=== PATIENT | female | born 1945 | race Caucasian/White ===

== ENCOUNTER → 2017-07-02 | Outpatient (CLI) | payer MEDICARE ==
--- NOTE | 2017-07-02 15:42 | REPMRS ---
Patient History The patient states she had a clinical breast exam in Patient is postmenopausal and had first child at age 34. Family history of ovarian cancer in mother at age 72 and colorectal cancer in paternal uncle at age 78. Took hormonal contraceptives for 5 years. Digital Woman Screen Mammo: July 02, 2017 - Exam #: [id number] Bilateral CC and MLO view(s) were taken. Technologist: Beth Andujar, Technologist Prior study comparison: May 21, 2016, bilateral digital mammo screening bilat, performed at [facility]. March 22, 2015, bilateral digital mammo screening bilat, performed at [facility]. FINDINGS: There are scattered fibroglandular densities. There has been no change in the appearance of the mammogram from the prior studies. There is a mild amount of residual fibroglandular tissue which is fairly symmetric. There is no interval development of dominant mass, architectural distortion, or clustered microcalcification suggestive of malignancy. ASSESSMENT: BI-RADS/ACR category 1 mammogram. Negative. Recommendation Routine screening mammogram in 1 year (for women over age 40). This mammogram was interpreted with the aid of an FDA-approved computer-aided dectection system. Electronically Signed By: Anders Marcos MD 07/02/17 [id number]
--- NOTE | 2017-07-06 11:11 | DEXA ---
AP SPINE L1 - L4 1.058 -1.1 0.6 LT FEMUR TOTAL 0.845 -1.3 0.2 RT FEMUR TOTAL 0.838 -1.3 0.2 TOTAL BODY TOTAL OTHER COMMENTS: There is low bone density of the spine and hips. The decreased density of the spine does represent a significant change. The decreased density of the left hip does represent a significant change. The decreased density of the right hip does represent a significant change. The density of the spine has decreased 1.9% since the initial exam on 11/2006. The spine density has decreased 3.0% since the most recent exam on 06/2009. The density of the left hip has decreased 2.0% since the initial exam on 11/2006. The density of the left hip has decreased 6.1% since the most recent exam on 2008. The density of the right hip has decreased 5.7% since the initial exam on 2006. The density of the right hip has decreased 5.5% since the most recent exam in . FOLLOW-UP: Recommendation for the next bone density exam: 2 years. JACKIE
== END ==
LOC: M WHC 14:04
PROVIDERS: ATTEND Internal Medicine
DX: Z12.31 Encounter for screening mammogram for malignant neoplasm of breast (principal); M85.80 Other specified disorders of bone density and structure, unspecified site; Z92.0 Personal history of contraception; Z78.0 Asymptomatic menopausal state
CPT/HCPCS: 77080; G0202

== ENCOUNTER → 2017-08-03 | Outpatient (CLI) | payer MEDICARE ==
--- NOTE | 2017-08-03 11:42 | REP ---
Maxillofacial CT study without contrast: History: Anosmia. No comparison study. Technique: Helical scanning is acquired. Axial 3 mm slices are reformatted along with coronal multiplanar reformation images. CT findings: There is moderate mucosal thickening circumferentially involving the left maxillary sinus. The left maxillary sinus mc are slightly thickened suggesting chronic changes. The left infundibulum is developmentally narrowed. The ostium and infundibulum are occluded in the ostiomeatal complexes on the left by mucosal thickening. The right OMC is patent. Bony nasal septum is in the midline. Nasal turbinate soft tissues are unremarkable and symmetric. No nasal polyp is seen. Ethmoid aeration is normal. The right maxillary sinus is clear. Frontal sinuses and sphenoid sinuses are clear. Mastoid aeration is normal and symmetric. Nasopharynx is unremarkable. There is some spray artifact from dental amalgam. No bony destructive change is seen. The nate henry and olfactory grooves are unremarkable. Impression: Left maxillary sinus disease likely chronic. Occluded left ostiomeatal complex. No other abnormality. Signed by Reji Banda MD 08/03/2017 04:10 P
== END ==
LOC: M RAD 10:17
PROVIDERS: ATTEND Otolaryngology
DX: R43.0 Anosmia (principal); J34.89 Other specified disorders of nose and nasal sinuses

== ENCOUNTER → 2017-12-08 | Outpatient (REF) | payer MEDICARE ==
[2017-12-08 18:52] LABS: C REACTIVE PROTEIN QUANTITATIV < 0.30 MG/DL (0.00-0.30)
== END ==
LOC: M LAB REF 17:45
DX: M79.1 Myalgia (principal)
CPT/HCPCS: 86140

== ENCOUNTER → 2017-12-10 | Outpatient (REF) | payer MEDICARE ==
[2017-12-10 14:00] LABS: VITAMIN B12 LEVEL 399 PG/ML
[2017-12-10 14:01] LABS: FOLATE 14.3 NG/ML; RHEUMATOID FACTOR QUANT < 10.0 IU/ML (<15.0); TOTAL PROTEIN 7.8 GM/DL (6.4-8.2)
[2017-12-10 14:25] LABS: ERYTHROCYTE SEDIMENTATION RATE 14 mm/hr (0-30)
[2017-12-10 14:56] LABS: ESTIMATED AVERAGE GLUCOSE 111 MG/DL (60-110); HEMOGLOBIN A1c 5.5 %
[2017-12-14 10:59] LABS: ALBUMIN 4.36 GM/DL (3.29-5.55); ALBUMIN % 55.9 % (55.8-66.1); ALPHA-1-GLOBULIN % 3.9 % (2.9-4.9); ALPHA-2-GLOBULINS 0.84 GM/DL (0.42-0.99); ALPHA-2-GLOBULINS % 10.8 % (7.1-11.8); BETA-1-GLOBULINS 0.52 GM/DL (0.28-0.60); BETA-1-GLOBULINS % 6.7 % (4.7-7.2); BETA-2-GLOBULINS 0.42 GM/DL (0.19-0.55); BETA-2-GLOBULINS % 5.4 % (3.2-6.5); GAMMA GLOBULIN % 17.3 % (11.1-18.8); GAMMA GLOBULINS 1.35 GM/DL (0.65-1.58)
[2017-12-15 00:06] LABS: ANCA-ATYPICAL <1:20 titer (Neg:<1:20); ANTI DOUBLE STRAND-DNA AB <1 IU/mL (0-9); ANTINUCLEAR ANTIBODIES DIRECT Negative (Negative); CERULOPLASMIN 24.1 mg/dL (19.0-39.0); COPPER PLASMA 107 ug/dL (72-166); CYTOPLASMIC NEUTROP AB ANCA-C <1:20 titer (Neg:<1:20); LEAD BLOOD ADULT 1 ug/dL (0-19); MERCURY LEVEL 1.8 ug/L (0.0-14.9); PERINUCLEAR AB ANCA-P <1:20 titer (Neg:<1:20); SJOGREN'S ANTI SS-A <0.2 AI (0.0-0.9); SJOGREN'S ANTI SS-B <0.2 AI (0.0-0.9); VITAMIN B6,PYRIDOXAL PHOSPHATE 5.3 ug/L (2.0-32.8); VITAMIN E(ALPHA TOCOPHEROL) 11.5 mg/L (9.0-29.0); VITAMIN E(GAMMA TOCOPHEROL) 1.3 mg/L (0.5-4.9)
[2017-12-15 09:07] LABS: DRVV SCREEN 35.2 SEC
[2017-12-15 09:08] LABS: PTT LUPUS TYPE ANTICOAG SCREEN 0.8 (0-1.2)
== END ==
LOC: M LABNEURO 09:54
DX: G62.9 Polyneuropathy, unspecified (principal); Z13.88 Encounter for screening for disorder due to exposure to contaminants
CPT/HCPCS: 82525

== ENCOUNTER 2017-12-24 12:35 | Observation (INO) | payer MEDICARE ==
[2017-12-24] MEDS: LABETALOL HCL 100 MG/20 ML VIAL IV ×2 (13:50→19:00)
[2017-12-24 13:59] LABS: BASO # 0.1 10^3/uL (0.0-0.2); BASO % 1.1 % (0.0-1.0); EOS # 0.1 10^3/uL (0.0-0.50); EOS % 0.9 % (0.0-3.0); HEMATOCRIT 36.7 % (36.0-47.0); HEMOGLOBIN 12.1 g/dl (12.0-15.5); IMMATURE GRANULOCYTE % 0.3 % (0-3.0); LYMPH # 1.1 10^3/uL (1.5-4.5); LYMPH % 16.7 % (24.0-44.0); MEAN CORPUSCULAR HEMOGLOBIN 30.4 pg (27.0-33.0); MEAN CORPUSCULAR VOLUME 92.2 fl (80.0-96.0); MONO # 0.3 10^3/uL (0.0-0.8); MONO % 5.2 % (0.0-5.0); NEUTROPHILS # 4.9 10^3/uL (1.8-7.7); NEUTROPHILS % 75.8 % (36.0-66.0); PLATELET COUNT, AUTOMATED 188 10^3/uL (150-450); RED BLOOD COUNT 3.98 10^6/uL (4.00-5.40); RED CELL DISTRIBUTION WIDTH 13.2 % (11.5-14.5); WHITE BLOOD COUNT 6.5 10^3/uL (4.0-10.0)
[2017-12-24 14:10] LABS: INR 0.93; PROTHROMBIN TIME 12.5 SECONDS (12.4-14.5)
[2017-12-24 14:11] LABS: PARTIAL THROMBOPLASTIN TIME 31.1 SECONDS (26.8-37.9)
[2017-12-24 14:26] LABS: ALBUMIN 3.8 GM/DL (3.2-5.2); ALBUMIN/GLOBULIN RATIO 1.06 (1.00-1.93); ALKALINE PHOSPHATASE 77 U/L (45-117); ALT/SGPT 21 U/L (12-78); ANION GAP 7 MEQ/L (8-16); AST/SGOT 27 U/L (7-37); BILIRUBIN,DIRECT 0.2 MG/DL (0.0-0.2); BILIRUBIN,TOTAL 0.7 MG/DL (0.2-1.0); BLOOD UREA NITROGEN 13 MG/DL (7-18); CALCIUM LEVEL 8.9 MG/DL (8.8-10.2); CARBON DIOXIDE LEVEL 25 MEQ/L (21-32); CHLORIDE LEVEL 109 MEQ/L (98-107); CK-MB VALUE MASS < 1.0 NG/ML (<3.6); CPK CREATINE PHOSPHOKINASE 105 U/L (26-192); GLOMERULAR FILTRATION RATE > 60.0 (>39); GLUCOSE, FASTING 99 MG/DL (70-100); MB/CK RELATIVE INDEX 0.95 (< OR =4); POTASSIUM SERUM 4.4 MEQ/L (3.5-5.1); SODIUM LEVEL 141 MEQ/L (136-145); TOTAL PROTEIN 7.4 GM/DL (6.4-8.2); TROPONIN I 0.02 NG/ML (< 0.10)
[2017-12-24] MEDS: METOCLOPRAMIDE INJ 10MG/2ML VIAL (J2765) IV (15:30)
[2017-12-24] MEDS: amLODIPine 5 MG TAB PO (16:37)
[2017-12-24 16:42] LABS: C REACTIVE PROTEIN QUANTITATIV < 0.30 MG/DL (0.00-0.30); NT-PRO BNP 350 PG/ML (<125)
[2017-12-24 17:01] LABS: ERYTHROCYTE SEDIMENTATION RATE 14 mm/hr (0-30)
[2017-12-24] MEDS ORDERED: ACETAMINOPHEN 500 MG TAB PO (17:15)
[2017-12-24] MEDS ORDERED: ENTER DRUG NAME HERE (PATIENT'S OWN MED) OU (17:15)
[2017-12-24] MEDS ORDERED: ONDANSETRON 4MG/2ML VIAL (J2405) IV (17:15)
[2017-12-24] MEDS: CYCLOBENZAPRINE 5MG TABLET PO (17:17)
[2017-12-24 18:00] LABS: THYROID STIMULATING HORMONE 0.674 uIU/ML (0.358-3.740)
[2017-12-24] MEDS ORDERED: KETOROLAC 30 MG/ML VIAL (J1885) IV (18:00)
[2017-12-24 18:19] LABS: APPEARANCE, URINE CLEAR (CLEAR); BACTERIA, URINE AUTO 1+ (NEGATIVE); BILIRUBIN, URINE AUTO NEGATIVE (NEGATIVE); BLOOD, URINE BLOOD NEGATIVE (NEGATIVE); COLOR, URINE STRAW (YELLOW); GLUCOSE, URINE (UA) AUTO NEGATIVE (NEGATIVE); KETONE, URINE AUTO 1+ mg/dL (NEGATIVE); LEUKOCYTE ESTERASE, URINE AUTO 2+ (NEGATIVE); MUCUS, URINE SMALL (NEGATIVE); NITRITE, URINE AUTO NEGATIVE (NEGATIVE); PROTEIN, URINE AUTO NEGATIVE (NEGATIVE); RBC, URINE AUTO 3 /HPF (0-3); SPECIFIC GRAVITY URINE AUTO 1.006 (1.002-1.035); SQUAMOUS EPITHELIAL CELL UR AU 0 /HPF (0-6); UROBILINOGEN, URINE AUTO 0.2 mg/dL (0.0-2.0); WBC, URINE AUTO 17 /HPF (0-3)
[2017-12-24 20:14] LABS: CPK CREATINE PHOSPHOKINASE 76 U/L (26-192); TROPONIN I 0.08 NG/ML (< 0.10)
[2017-12-24 20:15] LABS: CK-MB VALUE MASS 1.2 NG/ML (<3.6); MB/CK RELATIVE INDEX 1.57 (< OR =4)
[2017-12-24] MEDS: LISINOPRIL 20 MG TAB PO (20:55)
[2017-12-24] MEDS ORDERED: LISINOPRIL 10 MG TAB PO (21:00)
[2017-12-24] MEDS ORDERED: PILL CRUSHER/CUTTER 1 EACH XX (21:30)
[2017-12-24] MEDS: ROSUVASTATIN 10 MG TAB (CRESTOR) PO (21:40)
[2017-12-24] MEDS: rOPINIRole 0.25 MG TAB(REQUIP) PO (21:40)
[2017-12-24] MEDS: POLYVINYL ALCOHOL OPHTH SOLN 15 ML(LIQUITEARS) OU (21:41)
[2017-12-24] MEDS: DOCUSATE SODIUM 100 MG CAP PO (21:41)
[2017-12-24] MEDS: ASPIRIN 81 MG ENTERIC TAB PO (21:41)
[2017-12-24] MEDS: FLUTICASONE PROP 0.05% NASAL SPRAY 16 GM (FLONASE) (21:42)
[2017-12-24] MEDS ORDERED: TEARS NATURALE FREE OPHTH DROP VIAL OU (22:00)
[2017-12-25] MEDS: LABETALOL HCL 100 MG/20 ML VIAL IV ×2 (00:32→06:28)
[2017-12-25 04:54] LABS: BASO % 0.8 % (0.0-1.0); EOS # 0.1 10^3/uL (0.0-0.50); EOS % 2.2 % (0.0-3.0); HEMOGLOBIN 11.5 g/dl (12.0-15.5); IMMATURE GRANULOCYTE % 0.2 % (0-3.0); LYMPH # 1.6 10^3/uL (1.5-4.5); LYMPH % 31.6 % (24.0-44.0); MEAN CORPUSCULAR HEMOGLOBIN 30.6 pg (27.0-33.0); MEAN CORPUSCULAR HGB CONC 32.9 g/dl (32.0-36.5); MEAN CORPUSCULAR VOLUME 93.1 fl (80.0-96.0); MONO # 0.5 10^3/uL (0.0-0.8); MONO % 9.3 % (0.0-5.0); NEUTROPHILS # 2.8 10^3/uL (1.8-7.7); NEUTROPHILS % 55.9 % (36.0-66.0); PLATELET COUNT, AUTOMATED 187 10^3/uL (150-450); RED BLOOD COUNT 3.76 10^6/uL (4.00-5.40); RED CELL DISTRIBUTION WIDTH 13.3 % (11.5-14.5); WHITE BLOOD COUNT 4.9 10^3/uL (4.0-10.0)
[2017-12-25] MEDS: POLYVINYL ALCOHOL OPHTH SOLN 15 ML(LIQUITEARS) OU ×3 (05:10→21:01)
[2017-12-25 05:23] LABS: ANION GAP 5 MEQ/L (8-16); BLOOD UREA NITROGEN 11 MG/DL (7-18); CALCIUM LEVEL 8.5 MG/DL (8.8-10.2); CARBON DIOXIDE LEVEL 26 MEQ/L (21-32); CHLORIDE LEVEL 113 MEQ/L (98-107); CPK CREATINE PHOSPHOKINASE 64 U/L (26-192); CREATININE FOR GFR 0.79 MG/DL (0.55-1.30); GLOMERULAR FILTRATION RATE > 60.0 (>39); GLUCOSE, FASTING 92 MG/DL (70-100); SODIUM LEVEL 144 MEQ/L (136-145); TROPONIN I 0.02 NG/ML (< 0.10)
[2017-12-25 05:24] LABS: CK-MB VALUE MASS < 1.0 NG/ML (<3.6); MB/CK RELATIVE INDEX 1.56 (< OR =4)
[2017-12-25] MEDS: CALCIUM/VITAMIN D 500 MG TAB PO (08:54)
[2017-12-25] MEDS: rOPINIRole 0.25 MG TAB(REQUIP) PO ×3 (08:54→20:17)
[2017-12-25] MEDS: LISINOPRIL 20 MG TAB PO (08:54)
[2017-12-25] MEDS: DOCUSATE SODIUM 100 MG CAP PO ×2 (08:54→20:19)
[2017-12-25] MEDS: FLUTICASONE PROP 0.05% NASAL SPRAY 16 GM (FLONASE) ×2 (08:55→21:01)
[2017-12-25] MEDS: ACETAMINOPHEN TAB 650MG DOSE (2X325MG) PO (08:55)
[2017-12-25] MEDS: ENOXAPARIN 40 MG/0.4 ML SYRINGE (J1650) SC (08:55)
[2017-12-25] MEDS: PRAZOSIN 1 MG CAP PO ×2 (10:08→20:20)
[2017-12-25] MEDS ORDERED: POLYVINYL ALCOHOL OPHTH SOLN 15 ML(LIQUITEARS) OU (10:30)
[2017-12-25] MEDS: ASPIRIN 81 MG ENTERIC TAB PO (20:17)
[2017-12-25] MEDS: ROSUVASTATIN 10 MG TAB (CRESTOR) PO (20:19)
[2017-12-25] MEDS: CHLORTHALIDONE 25 MG TAB PO (20:19)
[2017-12-25] MEDS: CYCLOBENZAPRINE 5MG TABLET PO (21:01)
[2017-12-26 04:20] LABS: BASO # 0.1 10^3/uL (0.0-0.2); BASO % 1.2 % (0.0-1.0); EOS # 0.2 10^3/uL (0.0-0.50); EOS % 3.1 % (0.0-3.0); HEMATOCRIT 36.4 % (36.0-47.0); HEMOGLOBIN 11.7 g/dl (12.0-15.5); IMMATURE GRANULOCYTE % 0.4 % (0-3.0); LYMPH # 1.7 10^3/uL (1.5-4.5); LYMPH % 32.7 % (24.0-44.0); MEAN CORPUSCULAR HGB CONC 32.1 g/dl (32.0-36.5); MEAN CORPUSCULAR VOLUME 93.3 fl (80.0-96.0); MONO # 0.5 10^3/uL (0.0-0.8); MONO % 9.4 % (0.0-5.0); NEUTROPHILS # 2.7 10^3/uL (1.8-7.7); NEUTROPHILS % 53.2 % (36.0-66.0); PLATELET COUNT, AUTOMATED 190 10^3/uL (150-450); RED CELL DISTRIBUTION WIDTH 13.5 % (11.5-14.5); WHITE BLOOD COUNT 5.1 10^3/uL (4.0-10.0)
[2017-12-26 04:23] LABS: ANION GAP 7 MEQ/L (8-16); BLOOD UREA NITROGEN 15 MG/DL (7-18); CALCIUM LEVEL 8.4 MG/DL (8.8-10.2); CARBON DIOXIDE LEVEL 26 MEQ/L (21-32); CHLORIDE LEVEL 110 MEQ/L (98-107); CREATININE FOR GFR 0.98 MG/DL (0.55-1.30); GLOMERULAR FILTRATION RATE 59.6 (>39); GLUCOSE, FASTING 93 MG/DL (70-100); POTASSIUM SERUM 3.8 MEQ/L (3.5-5.1); SODIUM LEVEL 143 MEQ/L (136-145)
[2017-12-26] MEDS: POLYVINYL ALCOHOL OPHTH SOLN 15 ML(LIQUITEARS) OU ×3 (06:17→21:28)
[2017-12-26] MEDS: LISINOPRIL 20 MG TAB PO ×2 (07:44→08:30)
[2017-12-26] MEDS: PRAZOSIN 1 MG CAP PO ×2 (08:29→21:00)
[2017-12-26] MEDS: rOPINIRole 0.25 MG TAB(REQUIP) PO ×3 (08:29→21:28)
[2017-12-26] MEDS: CALCIUM/VITAMIN D 500 MG TAB PO (08:29)
[2017-12-26] MEDS: DOCUSATE SODIUM 100 MG CAP PO ×2 (08:30→21:00)
[2017-12-26] MEDS: ENOXAPARIN 40 MG/0.4 ML SYRINGE (J1650) SC (08:32)
[2017-12-26] MEDS: FLUTICASONE PROP 0.05% NASAL SPRAY 16 GM (FLONASE) ×2 (08:32→21:28)
[2017-12-26] MEDS: CYCLOBENZAPRINE 5MG TABLET PO (08:36)
[2017-12-26] MEDS: ASPIRIN 81 MG ENTERIC TAB PO (21:28)
[2017-12-26] MEDS: ROSUVASTATIN 10 MG TAB (CRESTOR) PO (21:29)
[2017-12-27] MEDS: POLYVINYL ALCOHOL OPHTH SOLN 15 ML(LIQUITEARS) OU (05:40)
[2017-12-27 05:49] LABS: BASO % 0.8 % (0.0-1.0); EOS # 0.2 10^3/uL (0.0-0.50); EOS % 3.7 % (0.0-3.0); HEMATOCRIT 37.5 % (36.0-47.0); HEMOGLOBIN 12.3 g/dl (12.0-15.5); IMMATURE GRANULOCYTE % 0.4 % (0-3.0); LYMPH # 1.7 10^3/uL (1.5-4.5); LYMPH % 32.6 % (24.0-44.0); MEAN CORPUSCULAR HEMOGLOBIN 30.7 pg (27.0-33.0); MEAN CORPUSCULAR HGB CONC 32.8 g/dl (32.0-36.5); MEAN CORPUSCULAR VOLUME 93.5 fl (80.0-96.0); MONO # 0.4 10^3/uL (0.0-0.8); MONO % 8.6 % (0.0-5.0); NEUTROPHILS # 2.7 10^3/uL (1.8-7.7); NEUTROPHILS % 53.9 % (36.0-66.0); PLATELET COUNT, AUTOMATED 203 10^3/uL (150-450); RED BLOOD COUNT 4.01 10^6/uL (4.00-5.40); RED CELL DISTRIBUTION WIDTH 13.4 % (11.5-14.5); WHITE BLOOD COUNT 5.1 10^3/uL (4.0-10.0)
[2017-12-27 06:04] LABS: ANION GAP 4 MEQ/L (8-16); BLOOD UREA NITROGEN 11 MG/DL (7-18); CALCIUM LEVEL 8.4 MG/DL (8.8-10.2); CARBON DIOXIDE LEVEL 28 MEQ/L (21-32); CHLORIDE LEVEL 110 MEQ/L (98-107); CREATININE FOR GFR 0.86 MG/DL (0.55-1.30); GLOMERULAR FILTRATION RATE > 60.0 (>39); GLUCOSE, FASTING 104 MG/DL (70-100); SODIUM LEVEL 142 MEQ/L (136-145)
[2017-12-27] MEDS: PRAZOSIN 1 MG CAP PO ×2 (09:00→10:51)
[2017-12-27] MEDS: CALCIUM/VITAMIN D 500 MG TAB PO (09:52)
[2017-12-27] MEDS: rOPINIRole 0.25 MG TAB(REQUIP) PO (09:52)
[2017-12-27] MEDS: DOCUSATE SODIUM 100 MG CAP PO (09:53)
[2017-12-27] MEDS: FLUTICASONE PROP 0.05% NASAL SPRAY 16 GM (FLONASE) (09:53)
[2017-12-27] MEDS: ENOXAPARIN 40 MG/0.4 ML SYRINGE (J1650) SC (09:53)
[2017-12-27] MEDS: LISINOPRIL 20 MG TAB PO (10:51)
[2017-12-31 00:08] LABS: METANEPHRINE PLASMA 36 pg/mL (0-62); NORMETANEPHRINE PLASMA 88 pg/mL (0-145)
== END 2017-12-27 11:00 | disposition home or self-care (01) ==
LOC: M MSPAV 12-26 21:58 → M ED 12:35 → M ED INP 12:36 → M PCU 20:44
DX: I16.0 Hypertensive urgency (principal); R51 Headache; E78.5 Hyperlipidemia, unspecified; J32.9 Chronic sinusitis, unspecified; G25.81 Restless legs syndrome; H04.123 Dry eye syndrome of bilateral lacrimal glands; Z91.81 History of falling; G89.29 Other chronic pain; M85.80 Other specified disorders of bone density and structure, unspecified site; Z79.899 Other long term (current) drug therapy; Z79.82 Long term (current) use of aspirin; Z88.2 Allergy status to sulfonamides; J30.81 Allergic rhinitis due to animal (cat) (dog) hair and dander; Z87.891 Personal history of nicotine dependence
CPT/HCPCS: J2765

== ENCOUNTER → 2018-07-05 | Outpatient (CLI) | payer MEDICARE | LOC: M RAD 09:29 | DX: Z12.31 Encounter for screening mammogram for malignant neoplasm of breast (principal); Z92.0 Personal history of contraception | CPT/HCPCS: 77067 ==

== ENCOUNTER → 2018-12-13 | Outpatient (CLI) | payer MEDICARE ==
[~2018-12-13] MED LIST: ASPI81TA21 PO; CALCTAB68 PO; COQ-400C PO; CRES5TAB PO; FLON27.5; LISI-538 PO; LISI10TA4 PO; MELO15TA28 PO; ROPI0.5T PO; SYST1SOL2 OP; SYSTSOL11 OU; TYLE500T78 PO
[2018-12-13 09:55] LABS: HEMATOCRIT 42.9 % (36.0-47.0); HEMOGLOBIN 13.6 g/dl (12.0-15.5); MEAN CORPUSCULAR HEMOGLOBIN 29.6 pg (27.0-33.0); MEAN CORPUSCULAR HGB CONC 31.7 g/dl (32.0-36.5); MEAN CORPUSCULAR VOLUME 93.3 fl (80.0-96.0); PLATELET COUNT, AUTOMATED 205 10^3/uL (150-450); WHITE BLOOD COUNT 7.3 10^3/uL (4.0-10.0)
[2018-12-13 10:08] LABS: INR 1.02; PROTHROMBIN TIME 13.5 SECONDS (12.1-14.4)
[2018-12-13 10:22] LABS: ALT/SGPT 26 U/L (12-78); BILIRUBIN,TOTAL 0.6 MG/DL (0.2-1.0); BLOOD UREA NITROGEN 16 MG/DL (7-18); CALCIUM LEVEL 9.4 MG/DL (8.8-10.2); CARBON DIOXIDE LEVEL 30 MEQ/L (21-32); CHLORIDE LEVEL 104 MEQ/L (98-107); GLOMERULAR FILTRATION RATE > 60.0 (>39); GLUCOSE, FASTING 91 MG/DL (70-100); POTASSIUM SERUM 3.9 MEQ/L (3.5-5.1); SODIUM LEVEL 140 MEQ/L (136-145); TOTAL PROTEIN 7.4 GM/DL (6.4-8.2)
[2018-12-13 10:24] LABS: ERYTHROCYTE SEDIMENTATION RATE 11 mm/hr (0-30)
--- NOTE | 2018-12-13 19:39 | REP ---
CHEST, TWO VIEWS: COMPARISON: 12/24/2017 There is no evidence of acute infiltrate. No pleural effusion is seen. The heart is normal in size. The mediastinal silhouette is unremarkable. The visualized osseous structures are intact. There is calcification of the thoracic aorta. IMPRESSION: No acute pulmonary disease. Electronically Signed by Anders Marcos MD 12/15/2018 10:16 A
--- NOTE | 2018-12-14 06:26 | ECGEPIP ---
Stationary ECG Study [facility] Test Date: 2018-12-13 Pat Name: VÍCTOR MAYER Department: Room: - Gender: F Observer [employer]: : 1945 Requested By: Gi John @ [facility] Order Number: [id number] Reading MD: Cecil Niño Measurements Intervals [place] Rate: 75 P: 40 NJ: 174 QRS: 28 QRSD: 90 T: 35 QT: 383 QTc: 429 Interpretive Statements Normal sinus rhythm Normal EKG Improvement in anterolateral repolarization pattern versus prior tracing of 12/24/2017 Electronically Signed On 12-14-2018 6:26:49 EDT by Cecil Niño
== END ==
LOC: M LAB 08:07
PROVIDERS: ATTEND Orthopaedic Surgery
DX: M17.12 Unilateral primary osteoarthritis, left knee (principal); Z01.818 Encounter for other preprocedural examination

== ENCOUNTER → 2018-12-23 | Outpatient (CLI) | payer MEDICARE ==
[~2018-12-23] MED LIST changes: +ACET-897 PO; +CHLO25TA PO; +CITRTAB13 PO; +POTA10TA16 PO; +SYST1SOL OU
== END ==
LOC: M PT 10:24
PROVIDERS: ATTEND Orthopaedic Surgery
DX: Z01.818 Encounter for other preprocedural examination (principal)

== ENCOUNTER 2019-01-13 12:10 | Inpatient (IN) | payer MEDICARE ==
--- NOTE | 2018-12-28 10:44 | CR ---
DATE OF CONSULTATION: 12/20/2018 Preoperative consultation on Lydia Montes De Oca for Dr. Mcginnis for surgery 01/13/2019. Dear Dr. Mcginnis: Thank you for asking me to see Ms. Lydia Montes De Oca in consultation prior to her left total knee arthroplasty (TKA). Ms. Montes De Oca is, as you know, a 73-year-old female with a past medical history of hypertension, hyperlipidemia, progressive osteoarthritis (OA), who presents for preoperative optimization on 12/20/2018. Ms. Montes De Oca had uncontrolled hypertension this year. She has changed to new health habits and has dropped her weight over 30 pounds by eating healthy and exercising. Her antihypertensive regimen has been weaned down such that she is just taking chlorthalidone at this time. She denies any chest pain or palpitations. Patient feels she has bronchitis, persistent coughing, fatigue, malaise over the last week. Her had it prior to this. Patient had restless leg syndrome. She was on dopaminergic medications, but these have been discontinued with little to no worsening of symptoms. Patient does have allergies. She uses saline and Flonase as needed. Patient has a nickel allergy, which was evaluated because the hardware used for the knee replacement normally has nickel. Indeed, patient was found to have allergies to nickel, gold, and methylchloroisothiazolinone. She is avoid these, and she will be having a titanium knee replacement to avoid the nickel. Patient does have the knee pain that limits her activities. She is eager to get the knee replaced and get back to full activity. Patient otherwise denies any fevers. She has had the chills, the cough, the shortness of breath. It has only been minimally productive. PATIENT'S PAST MEDICAL HISTORY: 1. Depression. 2. Hypertension. Status post hypertensive urgency with admission to [facility] 2018 with cardiology consultation finding no secondary cause of the elevated blood pressure and echocardiogram showing only impairment of left ventricle (LV) diastolic dysfunction. 3. Hyperlipidemia. 4. Obesity. 5. Migraines. 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 7. History of atypical Pap smears, endometriosis, . 8. Dyspnea on exertion. Previous normal spirometry 2011, normal chest x-ray 2009, and normal stress testing. 9. Atypical squamous cells of undetermined significance (ASCUS) 1996 with repeat normal Pap smears. 10. Precancerous skin lesions. Follows with Dr. Walden. 11. OA/degenerative joint disease (DJD) bilateral knees. Follows with orthopedics. 12. Restless leg syndrome. MEDICATIONS: She uses: - Biofreeze as needed - calcium daily - chlorthalidone 25 mg a half daily - Coenzyme Q10 daily - Crestor 5 mg daily - Flonase as needed - Klor-Con one daily - saline spray as needed - Systane eye drops - Tylenol Arthritis as needed PATIENT'S DRUG ALLERGIES: Are to SULFA, NICKEL, SIMVASTATIN, PRAVASTATIN, CAT DANDER, and METALS, including GOLD SODIUM THIOSULFATE, NICKEL SULFATE, METHYLCHLOROISOTHIAZOLINONE. SOCIAL HISTORY: Happily , two adult children. Retired former smoker. Occasional alcohol. FAMILY HISTORY: Positive for hypertension father. Mother of ovarian cancer at 74. Two brothers have had hypertension; one had a heart attack and heart failure in his 80s. PHYSICAL EXAMINATION: Overweight female in no acute distress. Her weight is 158 with a body mass index (BMI) of 28, oxygen saturation is 97% at rest. Blood pressure 114/60 with a heart rate of 98. In general, no acute distress. HEENT Exam: Head is normocephalic. Neck is supple. Pupils equal, reactive to light. Extraocular movements intact. Conjunctivae not injected. Sclerae anicteric. Vision grossly normal. Tympanic membranes normal. Tongue is midline. Posterior pharynx without inflammation. Neck is supple. No thyromegaly, jugular venous distention (JVD), carotid bruits. Respiratory: Coarse with frequent cough. Cardiovascular: Regular rate and rhythm. No murmur, rub, gallop. Abdomen: Soft, nontender. No hepatosplenomegaly. Gynecologic: Deferred. Breast Exam: Deferred. Extremities: No cyanosis, clubbing, or edema. Dermatologic: She has resolving erythema from skin testing to metals upper back. Neurologic: Alert and oriented. Cranial nerves II-XII intact. LABORATORY DATA: 12/20/2018: Normal CBC, med profile, lipid. 12/13/2018: Normal CBC, ESR, med profile, PT/PTT, liver panel. EKG [facility] ([facility]) 12/13/2018: Normal sinus rhythm, normal R wave progression. No atrial or ventricular hypertrophy. No pathologic T waves. Normal QT, QTc, RI intervals. Improved anterolateral repolarization compared to an EKG from 12/24/2017. Chest x-ray 12/13/2018: No acute cardiopulmonary disease. IMPRESSION: Ms. Lydia Montes De Oca, 73-year-old female, with cardiovascular risk factors positive for hypertension, hyperlipidemia, age, has no signs or symptoms indicative of cardiovascular ischemia and is felt to be at low risk and optimized for proposed surgical intervention. Risks can be further minimized by the followin. Hypertension. Hold chlorthalidone morning of surgery. Commended for efforts with diet, exercise, weight loss. 2. Hyperlipidemia. Continue with her diet, exercise. She will take her Crestor morning of surgery. 3. Osteoarthritis/degenerative joint disease. She is using only Tylenol, and I have approved this perioperatively as well as topicals. 4. Obesity. Commended at length for 30-pound weight loss. 5. Hyperglycemia, resolved. 6. Restless leg syndrome. Off ropinirole with no significant relapse of symptoms. 7. Allergic rhinitis. She will use her Flonase. Increase saline to four times a day. 8. Bronchitis, persistent greater than a week. She will use honey-based lozenges and doxycycline 100 mg by mouth twice a day for 10 days. I will see her back on recheck 12/28/2018 and do an addendum for final approval to proceed with surgical intervention. 9. Metal allergies, including to nickel, gold, and others. Should certainly be avoided in this patient. Thank you very much for this consultation. Please call with any questions or concerns.
--- NOTE | 2019-01-03 15:18 | CR ---
DATE OF CONSULTATION: 12/28/2018 Dr. Maria Isabel Moore dictating an addendum to original preoperative consultation 12/20/[address] Alvaro Mcginnis for knee replacement surgery 01/13/2019. The patient was originally seen for preoperative consultation 12/20/2018 at which time she was battling bronchitis. She was treated with doxycycline and reports significant improvement in her pulmonary symptoms, including improved energy, fatigue, malaise, cough, and congestion. The patient has one more day of antibiotic therapy. The patient otherwise reports she is doing well. Denying fevers or chills, chest pain, or shortness of breath. She has no new signs or symptoms of concern. She did go to joint camp yesterday. The patient is in no acute distress. Her vital signs are: Blood pressure 146/66, heart rate 88, weight is 160, with a body mass index (BMI) of 28. HEENT examination: Benign. Tympanic membranes slightly dull. Respiratory: Clear to auscultation. Cardiovascular: Regular rate and rhythm. Abdomen: Soft, nontender. Extremities: No edema. ASSESSMENT AND PLAN: Bronchitis. Significant improvement after a 10-day course of doxycycline. The patient is felt to be optimized and safe to proceed with surgical intervention, which is tentatively scheduled for 01/13/2019. She is instructed to take Flonase and saline until surgery and the a.m. of surgery. Otherwise, preoperative recommendations as per the previous preoperative consultation, including a.m. of surgery to take her Crestor with sip of water. Thank you very much for this consultation. Please call with questions or concerns.
--- NOTE | 2019-01-06 17:48 | HPE ---
DATE OF SCHEDULED ADMISSION: 01/13/2019 ATTENDING PHYSICIAN: Dr. Gi Mcginnis CHIEF COMPLAINT: Left knee pain and stiffness. HISTORY: This is a pleasant 73-year-old female patient with persistent and worsening pain in her left knee. She has failed to improve with conservative management to include injections in her knee. She has pain with weightbearing activities and activities of daily living, as well as it affects her sleep and activities of daily living. She has elected for surgery for her left knee. She has been consented by Dr. Mcginnis for a left total knee arthroplasty. X- rays notable for end-stage degenerative changes of her left knee. Medical optimization Dr. Moore. ALLERGIES: Include PRAVASTATIN, SIMVASTATIN, NICKEL and SULFA MEDICATIONS. CURRENT MEDICATIONS: - meloxicam 15 mg one tablet once per day; she will discontinue that 5 days prior surgery. - Crestor 5 mg one tablet once per day - Coenzyme Q-10 200 mg one tablet once per day - lisinopril/hydrochlorothiazide 10/12.5 one tablet once per day. - aspirin 81 mg; she will stop that 5 days prior to surgery. - She also takes [id number] glucosamine chondroitin and Citracal. MEDICAL CONDITIONS: Include hypertension, elevated cholesterol, allergic rhinitis, end-stage osteoarthritis of the left knee. FAMILY HISTORY: Elevated cholesterol, hypertension, cancer, heart disease, thyroid disease. SOCIAL HISTORY: She does not smoke. She occasionally uses alcohol. She is retired. PAST SURGICAL HISTORY: She has had a growth removed from her left wrist and her right foot. REVIEW OF SYSTEMS: Denies fever or chills. Denies chest pain, shortness of breath or cough. Denies difficulty breathing. Denies abdominal pain. Notes persistent pain in her left knee with weightbearing activities and activities of daily living. Denies nausea or vomiting. Denies recent upper respiratory infection (URI) or urinary tract infection (UTI) symptoms. EXAM: Today reveals alert female patient. She ambulates with the use of a cane. She favors her left side. Exam of left knee reveals the skin to be intact. No erythema, edema or ecchymosis. Tenderness both medially and laterally. The calf is soft, nontender to palpation. She can sensate light touch, well-perfused left lower extremity. Neck is supple without adenopathy or jugular venous distention (JVD). Lungs are clear to auscultation. No rales or wheeze. Heart: Regular rate and rhythm. Abdomen: Bowel sounds are present. IMPRESSION: Symptomatic osteoarthritis left knee. PLAN: Consented for a left total knee arthroplasty. It should be advised that she has a nickel allergy. She will need to be set up for a Nieves and [employer] system due to the nickel allergy. JACKIE
[~2019-01-13] VITALS: Ht 160 cm; Wt 70.3 kg
[~2019-01-13 12:10] MED LIST changes: +ACETAMINOPHEN 500 MG TAB PO ONE; +LIDOCAINE 1% MDV 20ML VIAL SQ PRN; +LR 1,000 ML IV SCH
[2019-01-13] MEDS ORDERED: ceFAZolin 2 GM/D5W 50 ML IV BAG (J0690 PER 500MG) As Ordered ONE (12:43)
[2019-01-13] MEDS ORDERED: ceFAZolin 1GM INJ (J0690 PER 500MG) As Ordered ONE (13:39)
[2019-01-13] MEDS ORDERED: BUPIVACAINE LIPOSOME/PF 1.3% 20ML VIAL (13.3MG/ML)(EXPAREL)(C9290 PER1MG) As Ordered ONE (13:40)
[2019-01-13] MEDS ORDERED: BUPIVACAINE HCL 0.25% 10 ML VIAL As Ordered ONE (13:40)
[2019-01-13] MEDS ORDERED: TRANEXAMIC ACID 100 MG/ML 10ML VIAL As Ordered ONE (13:41)
[2019-01-13] MEDS ORDERED: EPINEPHrine INJ 1 MG/ML 1ML AMP As Ordered ONE (13:42)
[2019-01-13] MEDS ORDERED: MIDAZOLAM INJ 2 MG/2 ML VIAL (J2250) As Ordered ONE ×2 (14:34→16:52)
[2019-01-13] MEDS ORDERED: fentaNYL 100 MCG/2 ML INJECTION (J3010) As Ordered ONE ×2 (14:35→16:52)
[2019-01-13] MEDS: fentaNYL 100 MCG/2 ML INJECTION (J3010) IV SCH ×2 (15:06→15:26)
[2019-01-13] MEDS: MIDAZOLAM INJ 2 MG/2 ML VIAL (J2250) IV SCH ×4 (15:06→15:26)
[2019-01-13] MEDS ORDERED: dexameTHASONE 10 MG/1 ML VIAL PRES.FREE (J1100) ONE (15:27)
[2019-01-13] MEDS ORDERED: ROPIvacaine 0.5% 30 ML INJECTION (J2795 PER 1MG) ONE (15:27)
[2019-01-13] MEDS ORDERED: EPINEPHrine INJ 1 MG/ML 1ML AMP ONE (15:27)
[2019-01-13] MEDS ORDERED: LIDOCAINE 2% INJ 100 MG/5 ML SDV (FOR ANES.) As Ordered ONE (16:52)
[2019-01-13] MEDS ORDERED: PROPOFOL 500 MG/50 ML VIAL As Ordered ONE (16:52)
[2019-01-13] MEDS ORDERED: BUPIVACAINE/DEXTROSE 0.75% 2 ML AMP As Ordered ONE (16:52)
[2019-01-13] MEDS ORDERED: ONDANSETRON 4MG/2ML VIAL (J2405) As Ordered ONE (16:52)
[2019-01-13] MEDS ORDERED: PHENYLephrine HCL 500 MCG/5 ML (100MCG/ML) SYRINGE (J2370) As Ordered ONE (16:52)
--- NOTE | 2019-01-13 18:53 | REP ---
Clinical: Status post knee replacement. Technique AP and cross-table lateral views. Findings: The patient is status post left knee replacement. Overlying postsurgical changes appreciated. Impression: Status post left knee replacement. Electronically Signed by Caleb Ackerman MD 01/13/2019 06:45 P
[2019-01-13] MEDS ORDERED: ONDANSETRON 4MG/2ML VIAL (J2405) IV PRN (19:00)
[2019-01-13] MEDS ORDERED: fentaNYL 100 MCG/2 ML INJECTION (J3010) IV PRN (19:00)
[2019-01-13] MEDS ORDERED: ACETAMINOPHEN TAB 650MG DOSE (2X325MG) PO PRN (19:00)
[2019-01-13] MEDS ORDERED: FLEET ENEMA PR PRN (19:00)
[2019-01-13] MEDS ORDERED: MEPERIDINE INJ 25 MG/ML VIAL (J2175) IV PRN (19:00)
[2019-01-13] MEDS ORDERED: PERCOCET 5MG/325MG TAB PO PRN (19:00)
[2019-01-13] MEDS ORDERED: METOCLOPRAMIDE INJ 10MG/2ML VIAL (J2765) IV PRN (19:00)
[2019-01-13] MEDS ORDERED: LR 1,000 ML IV SCH ×2 (19:00)
--- NOTE | 2019-01-13 19:32 | CR.PDOC ---
General Date of Consultation: January 13, 2019 Referring Provider: TERRI BRUCE MD Consultation REASON FOR CONSULTATION/CHIEF COMPLAINT: Management of medical comorbidities. HISTORY OF PRESENT ILLNESS: . 73-year-old female with past medical history of hypertension, dyslipidemia, and osteoporosis was admitted to the orthopedic service for elective left knee replacement. At this time, the patient states that she is feeling relatively well and denies any acute complaints of fevers, chills, chest pain, palpitations, abdominal pain, or any nausea/vomiting/diarrhea. The hospitalist service was consulted for management of the patient's medical comorbidities. ALLERGIES: Please see below. HOME MEDICATIONS: Please see below. PAST MEDICAL HISTORY: As noted in HPI. PAST SURGICAL HISTORY: Growth removal from left wrist and right foot SOCIAL HISTORY: Occasional alcohol use. Denies tobacco or illicit drug use. REVIEW OF SYSTEMS: 10 point review of systems negative unless otherwise specified in HPI. PHYSICAL EXAMINATION: VITAL SIGNS: Please see below. GENERAL APPEARANCE: . Awake, alert, in no acute distress HEENT: . Normocephalic, atraumatic RESPIRATORY: . Clear to auscultation bilaterally CARDIOVASCULAR: . Normal rate, normal S1, S2 ABDOMEN: . Soft, nontender, nondistended EXTREMITIES: . Left knee wrapped in surgical dressing. Range of motion limited due to recent surgical intervention. Extremity neurovascularly intact distally LABORATORY DATA: Please see below. ASSESSMENT/PLAN: s/p Left Knee Replacement AC, Pain, post-operative surgical mgmt as per Ortho Hypertension We will restart the patient's chlorthalidone in the a.m. if labs are stable Dyslipidemia Continue statin DVT prophylaxis On Xarelto as per Ortho Vital Signs/I&O Vital Signs Date Time Temp Pulse Resp B/P (MAP) Pulse Ox O2 Delivery O2 Flow Rate FiO2 01/13/19 19:10 97.6 76 18 158/73 (101) 99 01/13/19 15:31 3 Allergies Coded Allergies: Cat Dander (Verified Allergy, Severe, 12/30/18) Isothiazolinones (Verified Allergy, Unknown, CL + ME + ISOTHIAZOLINONE, 12/30/18) Sulfa (Sulfonamide Antibiotics) (Verified Allergy, Unknown, rash, 12/30/18) adhesive (Verified Allergy, Unknown, rash, 12/30/18) nickel (Verified Allergy, Unknown, 12/30/18) pravastatin (Verified Allergy, Unknown, muscle pain, 12/31/18) simvastatin (Verified Allergy, Unknown, muscle pain, 12/31/18) sodium thiosulfate (Verified Allergy, Unknown, GOLD SODIUM THIOSULFATE, 12/30/18) Home Medications Scheduled Calcium Citrate/Vitamin D3 (Citracal + D Maximum Caplet) 1 Each Tablet, 1 TAB PO QAM, (Reported) Chlorthalidone (Chlorthalidone) 25 Mg Tablet, 25 MG PO DAILY, (Reported) Fluticasone Furoate (Flonase Sensimist) 27.5 Mcg/[place] Naomy, 1 SPRAY NA QHS, (Reported) Potassium Chloride (Potassium Chloride) 10 Meq Tab.er.prt, 10 MEQ PO DAILY, (Reported) Propylene Glycol/Peg 400 (Systane 0.3-0.4% Eye Drops) 15 Ml Drops, 1 DROP OU DAILY, (Reported) Rosuvastatin Calcium (Crestor) 5 Mg Tab, 5 MG PO QHS, (Reported) Ubidecarenone (Co Q-10) 400 Mg Cap, 400 MG PO QHS, (Reported) Scheduled PRN Acetaminophen (Tylenol Extra Strength) 500 Mg Tablet, 1,000 MG PO Q6HP PRN for PAIN, (Reported) TERRI BRUCE MD January 13, 2019 19:32
[2019-01-13 19:50] VITALS: BP 150/75
[2019-01-13 20:20] VITALS: BP 145/70
[2019-01-13] MEDS: HYDROmorphone HCL 2 MG/ML 1ML VIAL (J1170) IV PRN (20:55)
[2019-01-13] MEDS: FLUTICASONE PROP 0.05% NASAL SPRAY 16 GM (FLONASE) NARES SCH (21:00)
[2019-01-13] MEDS ORDERED: PILL CUTTER 1 EACH XX PRN (23:45)
[2019-01-14 00:20] VITALS: BP 156/73
[2019-01-14] MEDS: HYDROmorphone HCL 2 MG/ML 1ML VIAL (J1170) IV PRN (00:56)
[2019-01-14 06:00] VITALS: BP 144/69
[2019-01-14] MEDS ORDERED: PERCOCET 5MG/325MG TAB PO PRN (06:15)
[2019-01-14 06:28] LABS: HEMATOCRIT 35.8 % (36.0-47.0); HEMOGLOBIN 11.7 g/dl (12.0-15.5); MEAN CORPUSCULAR HEMOGLOBIN 30.5 pg (27.0-33.0); MEAN CORPUSCULAR HGB CONC 32.7 g/dl (32.0-36.5); MEAN CORPUSCULAR VOLUME 93.2 fl (80.0-96.0); PLATELET COUNT, AUTOMATED 173 10^3/uL (150-450); RED BLOOD COUNT 3.84 10^6/uL (4.00-5.40); WHITE BLOOD COUNT 8.8 10^3/uL (4.0-10.0)
[2019-01-14 06:36] LABS: INR 0.98; PROTHROMBIN TIME 13.1 SECONDS (12.1-14.4)
[2019-01-14] MEDS: PERCOCET 5MG/325MG TAB PO PRN ×2 (06:41→10:51)
[2019-01-14] MEDS ORDERED: XARE10TA PO (06:44)
[2019-01-14] MEDS ORDERED: PERC5TAB12 PO (06:44)
[2019-01-14 06:50] LABS: BLOOD UREA NITROGEN 9 MG/DL (7-18); CARBON DIOXIDE LEVEL 28 MEQ/L (21-32); CHLORIDE LEVEL 105 MEQ/L (98-107); CREATININE FOR GFR 0.71 MG/DL (0.55-1.30); GLOMERULAR FILTRATION RATE > 60.0 (>39); GLUCOSE, FASTING 119 MG/DL (70-100); POTASSIUM SERUM 3.4 MEQ/L (3.5-5.1); SODIUM LEVEL 139 MEQ/L (136-145)
[2019-01-14 06:51] LABS: ALBUMIN 3.2 GM/DL (3.2-5.2); ALT/SGPT 21 U/L (12-78); BILIRUBIN,TOTAL 0.5 MG/DL (0.2-1.0); CALCIUM LEVEL 8.9 MG/DL (8.8-10.2); MAGNESIUM LEVEL 1.6 MG/DL (1.8-2.4); TOTAL PROTEIN 6.5 GM/DL (6.4-8.2)
[2019-01-14] MEDS ORDERED: MAGNESIUM OXIDE 400 MG TAB (MAG-OX) PO ONE (08:00)
[2019-01-14] MEDS ORDERED: POTASSIUM CHLORIDE 10 MEQ SR TABLET PO ONE (08:00)
[2019-01-14] MEDS ORDERED: CHLORTHALIDONE 25 MG TAB PO SCH (09:00)
[2019-01-14] MEDS: FLUTICASONE PROP 0.05% NASAL SPRAY 16 GM (FLONASE) NARES SCH (09:00)
[2019-01-14] MEDS ORDERED: ROSUVASTATIN 10 MG TAB (CRESTOR) PO SCH (09:00)
[2019-01-14] MEDS ORDERED: POLYVINYL ALCOHOL OPHTH SOLN 15 ML(LIQUITEARS) OU SCH (09:00)
[2019-01-14] MEDS ORDERED: MIRALAX *UNIT DOSE* 17GM PACKET PO SCH (09:00)
--- NOTE | 2019-01-14 09:35 | RO ---
DATE OF PROCEDURE: 01/13/2019 PREOPERATIVE DIAGNOSIS: Left knee degenerative arthritis. POSTOPERATIVE DIAGNOSIS: Left knee degenerative arthritis. PROCEDURE: Left total knee arthroplasty using a size 4 cruciate retaining femoral component with a size 2 tibial tray and a 10 mm fixed bearing polyethylene insert with a size 26 polyethylene button. All the components were cemented. Prosthesis was made by [employer]. It was a JOURNEY prosthesis made with titanium because of her nickel allergy. SURGEON: Gi Mcginnis MD SECURITY INFRASTRUCTURE ENGINEER: MJ Santos ANESTHESIA: Spinal with left femoral nerve block. COMPLICATIONS: None. ESTIMATED BLOOD LOSS: Less than 20 mL. SPECIMENS: Joint surface PROCEDURE: Antibiotics were given intravenously preoperatively and a successful left femoral nerve block then spinal anesthetic was induced. Tourniquet was placed on the left upper thigh and not inflated. The left lower extremity was carefully prepped and draped in the usual sterile fashion, and elevated. After an appropriate time out, the tourniquet was inflated to 250 mmHg for 85 minutes. A longitudinal incision was then made for a medial parapatellar approach. Bovie cautery was used to coagulate the crossing vessels. Medial parapatellar arthrotomy performed. Subperiosteal dissection around the proximal, medial and lateral tibial plateaus performed. Then the patella was everted and the knee flexed, and the anterior cruciate ligament (ACL) debrided. Drill placed down the center of the femoral canal followed by intramedullary manoj and distal femoral cutting jig set at 9.5 mm resection level at 5 degrees valgus for a left knee. Then the distal femoral osteotomy was performed. The AP sizing jig was placed then, and then the stylus told us this was going to be a size 4 femoral component. The drill holes were placed with 3 degrees of external rotation dialed in, and then the 4-in-1 block applied and secured to the distal femur, and then the anterior/posterior chamfer cuts were performed, taking great care to protect the surrounding soft tissues. We then exposed the proximal tibia and used the extramedullary alignment jig to estimate being parallel to the mechanical axis of the tibia, referencing off the medial tibial condyle, and we set it at 2 mm initially. It was pinned in position, then the extramedullary manoj confirmed we appeared to be parallel to the mechanical axis with the appropriate amount of slope. Proximal tibial osteotomy thus performed. We then placed a lamina solar lab technician laterally and performed a completion medial meniscectomy and debridement of a posteromedial osteophyte. Then placed the lamina the solar lab technician medially and performed a completion lateral meniscectomy and debridement of the posterolateral osteophytes. We then used the spacer block, it was a bit snug, quite a bit so with the 9 mm spacer block. However, reasonable symmetry between the medial and lateral compartments was noted in both flexion and extension, but I felt it best to take 2 mm more off the tibia because it was tight both in flexion and in extension, thus we reapplied the block and 2 mm more of proximal tibia were removed and irrigated, and then we trialed once again with the spacer block. The 9 fit nicely and the 10 actually fit nicely as well, and I thought that was probably going to be the right size. She had good stability to varus valgus stress testing both in flexion and extension. A little bit increased varus laxity compared to valgus laxity, which is typical. I then removed all the trial components at this point, exposed the proximal tibia, sized for a #2 tray and then the blocked was pinned in position, drill placed, followed by the chamfer cut. Then we removed the trial tibial tray and then applied the trial femoral component and then we applied the small jig that slid into the anterior portion of the femoral component and used the sliding osteotome to make a small notch cut. Then the trial femoral component was applied, and then the trial polyethylene was applied and we brought the knee into extension and everted the patella and performed a patellar osteotomy, sized for 26 button, drill holes were drilled. Trial placed and the patellofemoral tracking was anatomic. We flexed and extended the knee. She seemed to have good range of motion, good stability, good patellar tracking. We drilled lug holes for the femur at this point and then we removed all the trial components and placed Exparel in the subperiosteal tissues around the distal femur and the proximal tibia and then I prepared the bony surfaces for cementing while my farm assistant, Mr. Reynaldo Horvath mixed the cement on the back table. He was also critical to the success of this operation by helping with appropriate soft tissue retraction, helped to flex and extend the knee, helped to mix the cement, close the wound prepare the patient, amongst many other tasks to allow me to performed the operation smoothly, efficiently and safely. Once the stu surfaces were copiously irrigated and dried, we cemented the tibial tray, removed excess cement. We then placed the polyethylene, then cemented the femoral component, removed excess cement, brought the knee out into extension, cemented the patellar button, held it with a clamp, and then removed excess cement and held the knee in extension with a clamp on it until the cement hardened, and as we were awaiting this we copiously pulsatile lavage irrigated out the knee joint copiously again, and then applied tranexamic acid, and then began closing the apex of the arthrotomy with two #1 PDS sutures, and the medial parapatellar area was closed with a #1 PDS suture, and then a double armed STRATAFIX was used to close the capsule. The tourniquet was then released. We irrigated again between layers, closed the deep subdermal tissues with interrupted #2-0 PDS sutures. The skin was closed with bibiana and covered by an Optifoam and a dry sterile bulky dressing. She was then transferred to the recovery room in stable condition. There were no intraoperative complications.
--- NOTE | 2019-01-14 11:39 | IPNPDOC ---
Subjective Date Seen The patient was seen on 01/14/19. Subjective Chief Complaint/HPI Patient seen and examined at the bedside. Denies any acute complaints at this time. No overnight events noted. Objective Physical Examination General Exam: Positive: Alert, Cooperative, No Acute Distress ENT Exam: Positive: Atraumatic, Mucous membr. moist/pink Neck Exam: Negative: JVD Chest Exam: Positive: Clear to auscultation, Normal air movement Heart Exam: Positive: Rate Normal, Normal S1, Normal S2 Abdomen Exam: Positive: Soft; Negative: Tenderness Extremity Exam: Positive: Other (Left Knee wrapped in surgical dressing. Extremity neurovascularly intact distally.) Psych Exam: Positive: Oriented x 3 Assessment /Plan Plan/VTE VTE Prophylaxis Ordered?: Yes Plan s/p Left Knee Replacement AC, Pain, post-operative surgical mgmt as per Ortho Hypomagnesemia, Hypokalemia Replaced Hypertension Chlorthalidone restarted Dyslipidemia Continue statin DVT prophylaxis On Xarelto as per Ortho VS, I&O, 24H, Fishbone Vital Signs/I&O Vital Signs Date Time Temp Pulse Resp B/P (MAP) Pulse Ox O2 Delivery O2 Flow Rate FiO2 01/14/19 10:51 18 01/14/19 06:00 97.7 75 144/69 (94) 95 01/13/19 15:31 3 I&O- Last 24 Hours up to 6 AM 01/14/19 06:00 Intake Total 2340 ml Output Total 400 ml Balance 1940 ml Laboratory Data 24H LABS Laboratory Tests 2 01/14/19 05:59: Nucleated Red Blood Cells % (auto) 0.0, Prothrombin Time 13.1, Prothromb Time International Ratio 0.98, Anion Gap 6L, Glomerular Filtration Rate > 60.0, Blood Urea Nitrogen 9, Creatinine 0.71, Sodium Level 139, Potassium Level 3.4L, Chloride Level 105, Carbon Dioxide Level 28, Calcium Level 8.9, Aspartate Amino Transf (AST/SGOT) 24, Alanine Aminotransferase (ALT/SGPT) 21, Alkaline Phosphatase 64, Total Bilirubin 0.5, Total Protein 6.5, Albumin 3.2, Magnesium Level 1.6L, Albumin/Globulin Ratio 0.97L CBC/BMP Laboratory Tests 01/14/19 05:59 Red Blood Count 3.84 L, Mean Corpuscular Volume 93.2, Mean Corpuscular Hemogl obin 30.5, Mean Corpuscular Hemoglobin Concent 32.7, Red Cell Distribution Width 12.8, Calcium Level 8.9, Aspartate Amino Transf (AST/SGOT) 24, Alanine Aminotransferase (ALT/SGPT) 21, Alkaline Phosphatase 64, Total Bilirubin 0.5, Total Protein 6.5, Albumin 3.2 TERRI BRUCE MD January 14, 2019 11:39
[2019-01-14] MEDS ORDERED: RIVAROXABAN 10 MG TAB (XARELTO) PO SCH (18:00)
[2019-01-15] MEDS ORDERED: XARE10TA PO (00:01)
[2019-01-15] MEDS ORDERED: OXYC1TAB23 PO (00:01)
== END 2019-01-14 13:00 | disposition home or self-care (01) | DRG 470 ==
LOC: M OR 12:10 → M MS5PR 19:40
PROVIDERS: ADMIT Orthopaedic Surgery; ATTEND Orthopaedic Surgery
PROC: 0SRD0J9 Replacement of Left Knee Joint with Synthetic Substitute, Cemented, Open Approach (ICD-10-PCS; principal; 2019-01-13 14:45)
DX: M17.12 Unilateral primary osteoarthritis, left knee (principal); Z88.2 Allergy status to sulfonamides; Z88.8 Allergy status to other drugs, medicaments and biological substances; Z79.899 Other long term (current) drug therapy; Z88.6 Allergy status to analgesic agent; I10 Essential (primary) hypertension; E78.5 Hyperlipidemia, unspecified; F32.9 Major depressive disorder, single episode, unspecified; E66.9 Obesity, unspecified; G43.909 Migraine, unspecified, not intractable, without status migrainosus; G25.81 Restless legs syndrome

== ENCOUNTER 2019-01-14 22:09 | Inpatient (IN) | payer MEDICARE ==
[~2019-01-14] VITALS: Ht 160 cm; Wt 69550.0 kg
[~2019-01-14 22:09] MED LIST changes: -ACETAMINOPHEN 500 MG TAB PO ONE; -LIDOCAINE 1% MDV 20ML VIAL SQ PRN; -LR 1,000 ML IV SCH; +PERC5TAB12 PO; +XARE10TA PO
[2019-01-14] MEDS ORDERED: MORPHINE 4 MG/ML 1ML VIAL/SYRINGE (J2270) IV ONE (22:45)
[2019-01-14] MEDS ORDERED: METOCLOPRAMIDE INJ 10MG/2ML VIAL (J2765) IV ONE (22:45)
[2019-01-15] MEDS ORDERED: OXYC1TAB23 PO (00:01)
[2019-01-15] MEDS ORDERED: XARE10TA PO (00:01)
--- NOTE | 2019-01-15 00:22 | REPVR ---
EXAM: US Duplex Left Lower Extremity Veins, Limited EXAM DATE/TIME: 01/14/2019 11:17 PM CLINICAL HISTORY: 73 years old, female; Pain; Leg, upper; Left; Prior surgery; Surgery date: Post-operative (0-2 days); Surgery type: Lt knee replacement yesterday; Additional info: Post op leg pain TECHNIQUE: Imaging protocol: Real-time Duplex ultrasound of the Left Lower Extremity with 2-D ayala scale, color Doppler flow and spectral waveform analysis. Limited exam focused on the left lower extremity veins. COMPARISON: No relevant prior studies available. FINDINGS: Left deep veins: Unremarkable. The common femoral, femoral and popliteal veins are patent without thrombus. Normal compressibility, augmentation response and Doppler waveforms. Left superficial veins: Unremarkable. Saphenofemoral junction is patent without thrombus. Soft tissues: 6.2 x 1.7 cm complex popliteal cyst. IMPRESSION: 1. No sonographic evidence of deep vein thrombosis. 2. 6.2 x 1.7 cm complex popliteal cyst. Electronically signed by: Reynaldo Manzo On 01/15/2019 00:21:18 AM
[2019-01-15 01:35] VITALS: BP 155/68
[2019-01-15] MEDS: PERCOCET 5MG/325MG TAB PO PRN ×5 (02:14→20:24)
[2019-01-15] MEDS ORDERED: ONDANSETRON 4MG/2ML VIAL (J2405) IV PRN (02:15)
[2019-01-15] MEDS ORDERED: ACETAMINOPHEN TAB 650MG DOSE (2X325MG) PO PRN (02:15)
[2019-01-15] MEDS: MORPHINE 4 MG/ML 1ML VIAL/SYRINGE (J2270) IV PRN ×2 (05:10→14:04)
[2019-01-15 06:00] VITALS: BP 155/67
[2019-01-15] MEDS ORDERED: HEPARIN SOD (PORCINE) 5000 UNITS/ML VIAL SQ ONE (06:30)
--- NOTE | 2019-01-15 07:44 | HPE ---
DATE OF ADMISSION: 01/14/2019 CHIEF COMPLAINT: Postoperative day two left total knee arthroplasty, uncontrollable pain. HISTORY OF PRESENT ILLNESS: This 73-year-old female had a left total knee arthroplasty performed by Dr. Mcginnis two days ago now. She was apparently pain free and mobilizing well since her discharged home yesterday during the day. She reports increasing uncontrollable pain. She presented to the emergency department late last evening and was admitted under myself for pain management. There is no pain in her chest, shortness of breath or other difficulties aside from uncontrollable pain in the knee. This morning after receiving pain medications last night in the emergency [facility], she feels much better. She is comfortable, not complaining about pain anywhere else, although she does have some discomfort in the knee. PAST MEDICAL HISTORY: Significant for diastolic heart failure and dyslipidemia. MEDICATIONS AT HOME: - Crestor 5 mg by mouth once daily - chlorthalidone 25 mg by mouth once daily - rivaroxaban 10 mg by mouth once daily for anticoagulation ALLERGIES: SULFA MEDICATIONS, as well as recorded in her chart, CAT DANDER, ISOTHIAZOLINONES, ADHESIVES, NICKEL, PRAVASTATIN, SIMVASTATIN, SODIUM THIOSULFATE. PAST SURGICAL HISTORY: Lump removed from her right foot in 1962. SOCIAL HISTORY: She is a retired medical unit secretary. She does not smoke. She does not take illicit drugs. She drinks three glasses of usually wine a week. She lives with her in a ranch style house. REVIEW OF SYSTEMS: Negative for fever, chills, constitutional symptoms, pain anywhere else or shortness of breath. PHYSICAL EXAMINATION: Vital signs this morning: Temperature 97.3. Blood pressure 155/67. Pulse rate 75. Respiratory rate 16. 94% on room air. She looks comfortable. She is lying supine in bed. She has got a pleasant affect. She is alert and oriented times three. Converses easily and appropriately. On inspection of her left knee, there is an appropriate amount of swelling. There is very minimal ecchymosis. Dressing was dry but I did look underneath and the bibiana were in situ. Wound was normal without evidence of drainage or redness. Contralateral side was normal on inspection. No obvious atrophy, swelling, erythema deformity. Normal sensation in her feet. She is able to wiggle her toes, dorsiflex and plantar flex her foot. The feet were warm and well-perfused. Strong pedal pulses. Laboratory examination from last evening reveals hemoglobin 11.7. White blood cell count 8.8. Coagulation factors normal and electrolytes grossly normal aside from slightly low potassium at 3.4. CRP was under 0.3. A lower extremity Doppler venous ultrasonography was performed last night. This shows no sonographic evidence of deep vein thrombosis with a 6.2 x 1.7 cm complex popliteal cyst. ASSESSMENT/PLAN: This 73-year-old female appears to have an uncomplicated postoperative day two left total knee arthroplasty despite her increased levels of pain. Sounds like they simply got away from her last night so she presented back to the emergency department. This morning, she feels a lot more comfortable. Plan will remain the same which is too assess her mobility, make sure that she is comfortable and safe for discharge home and to have hopefully a little bit more support in place when she is eventually discharged home. Thank you very much for involving me in this woman's care.
[2019-01-15] MEDS: POTASSIUM CHLORIDE 10 MEQ SR TABLET PO SCH (07:45)
[2019-01-15] MEDS: CALCIUM/VITAMIN D 500 MG TAB PO SCH (07:47)
[2019-01-15] MEDS: ROSUVASTATIN 10 MG TAB (CRESTOR) PO SCH (07:47)
[2019-01-15] MEDS: CHLORTHALIDONE 25 MG TAB PO SCH (07:47)
[2019-01-15] MEDS ORDERED: ENTER DRUG NAME HERE (PATIENT'S OWN MED) OU SCH (09:00)
[2019-01-15 14:00] VITALS: BP 155/71
[2019-01-15 14:19] VITALS: BP 155/71
[2019-01-15] MEDS: RIVAROXABAN 10 MG TAB (XARELTO) PO SCH (18:19)
[2019-01-15] MEDS: FLUTICASONE PROP 0.05% NASAL SPRAY 16 GM (FLONASE) NARES SCH (20:24)
[2019-01-15 22:00] VITALS: BP 144/63
[2019-01-16 01:34] VITALS: BP 149/66
[2019-01-16 06:00] VITALS: BP 153/75
[2019-01-16] MEDS ORDERED: FLEET ENEMA PR PRN (06:00)
[2019-01-16] MEDS ORDERED: ONDANSETRON 4 MG TAB (S0181) PO PRN (06:30)
--- NOTE | 2019-01-16 07:31 | IPN ---
DATE OF SERVICE: 01/16/2019 CHIEF COMPLAINT: Postoperative day #3 left total knee arthroplasty with readmission for pain control. Ms. Montes De Oca is a 73-year-old female who has had complications with left total knee arthroplasty. She was having difficulty managing so she was readmitted for pain control management. She is doing much better yesterday. Is mobilizing appropriately. Feels like there is still a little bit of uncomfortableness to the knee but is feeling a lot better. Is passing gas but feels like is a little bit constipated. Otherwise no vomiting but is a little bit nauseous. PHYSICAL EXAMINATION: Vital signs: Temperature 98.7. Blood pressure 153/75. Pulse 97. Respiratory rate 18. 94% on room air. She is alert and oriented times three. Mood and affect pleasant and positive. She is lying supine in bed. She looks comfortable. Examination of the knee reveals a dressing to be dried in situ. There is minimal swelling. We readjusted her knee to be in full extension. She is able to wiggle toes, dorsiflex and plantar flex her foot. Foot is warm and well perfused with good pedal pulses. ASSESSMENT/PLAN: This 73-year-old female is on rivaroxaban 10 mg by mouth once daily for VTE prophylaxis. We will mobilize weightbearing as tolerated. We will ensure safety for discharge home. I have encouraged her to mobilize as well as drink plenty of fluids and possibly take some oral stool softeners or milk of magnesium to help her with going to the bathroom. Her abdomen was soft this morning and we will ensure that she has appropriate bowel movements. She can be discharged home when appropriate but likely she will stay one more day to make sure that she is fully comfortable and prevent any other readmission. Dr. Mcginnis should be back on Thursday morning and I will leave her care back in his hands then. Thank you for involving me in this woman's care.
[2019-01-16] MEDS: CHLORTHALIDONE 25 MG TAB PO SCH (07:46)
[2019-01-16] MEDS: SENOKOT S TAB PO SCH ×2 (07:47→19:54)
[2019-01-16] MEDS: POTASSIUM CHLORIDE 10 MEQ SR TABLET PO SCH (07:47)
[2019-01-16] MEDS: CALCIUM/VITAMIN D 500 MG TAB PO SCH (07:47)
[2019-01-16] MEDS: MOM 30ML SUSPENSION UDC PO SCH (07:48)
[2019-01-16] MEDS: MIRALAX *UNIT DOSE* 17GM PACKET PO SCH (07:48)
[2019-01-16] MEDS: ROSUVASTATIN 10 MG TAB (CRESTOR) PO SCH (07:48)
[2019-01-16] MEDS: PERCOCET 5MG/325MG TAB PO PRN ×3 (07:49→19:53)
[2019-01-16 14:00] VITALS: BP 158/81
[2019-01-16] MEDS: RIVAROXABAN 10 MG TAB (XARELTO) PO SCH (17:36)
[2019-01-16] MEDS: FLUTICASONE PROP 0.05% NASAL SPRAY 16 GM (FLONASE) NARES SCH (19:53)
[2019-01-16 22:00] VITALS: BP 147/74
[2019-01-17 06:00] VITALS: BP 167/88
[2019-01-17] MEDS: MOM 30ML SUSPENSION UDC PO SCH (09:00)
[2019-01-17] MEDS: SENOKOT S TAB PO SCH ×2 (09:00→21:00)
[2019-01-17] MEDS: MIRALAX *UNIT DOSE* 17GM PACKET PO SCH (09:00)
[2019-01-17] MEDS: ROSUVASTATIN 10 MG TAB (CRESTOR) PO SCH (09:24)
[2019-01-17] MEDS: CALCIUM/VITAMIN D 500 MG TAB PO SCH (09:25)
[2019-01-17] MEDS: POTASSIUM CHLORIDE 10 MEQ SR TABLET PO SCH (09:25)
[2019-01-17] MEDS: CHLORTHALIDONE 25 MG TAB PO SCH (09:25)
[2019-01-17 14:05] VITALS: BP 144/80
[2019-01-17] MEDS: RIVAROXABAN 10 MG TAB (XARELTO) PO SCH (17:04)
[2019-01-17] MEDS: PERCOCET 5MG/325MG TAB PO PRN (21:18)
[2019-01-17] MEDS: FLUTICASONE PROP 0.05% NASAL SPRAY 16 GM (FLONASE) NARES SCH (21:18)
[2019-01-17 22:00] VITALS: BP 139/74
[2019-01-18 06:00] VITALS: BP 156/72
[2019-01-18] MEDS: SENOKOT S TAB PO SCH (09:00)
[2019-01-18] MEDS: MOM 30ML SUSPENSION UDC PO SCH (09:00)
[2019-01-18] MEDS: MIRALAX *UNIT DOSE* 17GM PACKET PO SCH (09:00)
[2019-01-18] MEDS: ROSUVASTATIN 10 MG TAB (CRESTOR) PO SCH (09:18)
[2019-01-18] MEDS: CALCIUM/VITAMIN D 500 MG TAB PO SCH (09:18)
[2019-01-18] MEDS: CHLORTHALIDONE 25 MG TAB PO SCH (09:18)
[2019-01-18] MEDS: POTASSIUM CHLORIDE 10 MEQ SR TABLET PO SCH (09:18)
== END 2019-01-18 11:35 | disposition home health service (06) | DRG 948 ==
LOC: M ED 22:09 → M ED INP 23:53 → M MS5PR 01-15 01:30
PROVIDERS: ADMIT Orthopaedic Surgery Sports Medicine; ATTEND Orthopaedic Surgery Sports Medicine
DX: G89.18 Other acute postprocedural pain (principal); I50.32 Chronic diastolic (congestive) heart failure; Z96.652 Presence of left artificial knee joint; E78.5 Hyperlipidemia, unspecified; Z79.899 Other long term (current) drug therapy; Z88.2 Allergy status to sulfonamides; Z88.8 Allergy status to other drugs, medicaments and biological substances

== ENCOUNTER 2019-07-12 13:34 | Outpatient (RCR) | payer MEDICARE ==
[~2019-07-12 13:34] MED LIST changes: +OXYC1TAB23 PO
== END 2019-07-16 ==
LOC: M PT 13:34
PROVIDERS: ATTEND Orthopaedic Surgery
DX: Z47.89 Encounter for other orthopedic aftercare (principal); Z96.652 Presence of left artificial knee joint

== ENCOUNTER 2019-08-02 13:27 | Outpatient (RCR) | payer MEDICARE | END 2019-08-16 | LOC: M PT 13:27 | PROVIDERS: ATTEND Orthopaedic Surgery | DX: Z47.89 Encounter for other orthopedic aftercare (principal); Z96.652 Presence of left artificial knee joint ==

== ENCOUNTER → 2019-09-05 | Outpatient (CLI) | payer MEDICARE ==
--- NOTE | 2019-09-05 15:19 | REPMRS ---
Patient History The patient states she has not had a clinical breast exam in over a year. Family history of ovarian cancer at age 72 in mother, colorectal cancer at age 78 in paternal uncle. Took hormonal contraceptives for 5 years. Digital Woman Screen Mammo: September 05, 2019 - Exam #: [id number] Bilateral CC and MLO view(s) were taken. Technologist: Flori Kilpatrick, Technologist Prior study comparison: July 05, 2018, bilateral digital mammo screening bilat, performed at [facility]. July 02, 2017, digital woman screen mammo performed at [facility]. May 21, 2016, bilateral digital mammo screening bilat, performed at [facility]. FINDINGS: There are scattered fibroglandular densities. There has been no change in the appearance of the mammogram from the prior studies. There is a mild amount of scattered fibroglandular density which is fairly symmetric. There is no interval development of dominant mass, architectural distortion, or grouped microcalcification suggestive of malignancy. 3-D tomosynthesis shows no additional findings. Assessment: BI-RADS/ACR category 1 mammogram. Negative Mammogram. Recommendation Routine screening mammogram of both breasts in 1 year (for women over age 40). This patient's Lifetime Breast Cancer Risk is estimated at 6.0 %. This mammogram was interpreted with the aid of an FDA-approved computer-aided dectection system. Electronically Signed By: Fredo Banda MD 09/05/19 [id number]
== END ==
LOC: M WHC 10:34
PROVIDERS: ATTEND Internal Medicine
DX: Z12.31 Encounter for screening mammogram for malignant neoplasm of breast (principal)

== ENCOUNTER → 2020-08-30 | Outpatient (CLI) | payer SELFPAY ==
[~2020-08-30] MED LIST changes: -CITRTAB13 PO; +CITRTAB16 PO; -ROPI0.5T PO; +ROPI0.5T3 PO
== END ==
LOC: M LABSMTC 13:38
PROVIDERS: ATTEND Pediatrics
DX: Z20.822 Contact with and (suspected) exposure to COVID-19 (principal)

== ENCOUNTER → 2020-09-06 | Outpatient (CLI) | payer MEDICARE ==
[~2020-09-06] MED LIST changes: -LISI-538 PO; +LISI10TA22 PO; -LISI10TA4 PO; +LISI20TA33 PO
--- NOTE | 2020-09-06 10:59 | REPMRS ---
Patient History The patient states she had a clinical breast exam in July 2020.Family history of ovarian cancer at age 72 in mother, colorectal cancer at age 78 in paternal uncle. Took hormonal contraceptives for 5 years. 3D TOMOSYNTHESIS WAS PERFORMED. The Yovanny Mcgee lifetime risk for breast cancer is 5.7%. Volpara breast density b. Digital Woman Screen Mammo: September 06, 2020 - Exam #: [id number] Bilateral CC and MLO view(s) were taken. Technologist: Flori Kilpatrick, Technologist Prior study comparison: September 05, 2019, bilateral digital woman screen mammo performed at [facility]. July 05, 2018, bilateral digital mammo screening bilat, performed at [facility]. FINDINGS: There are scattered fibroglandular densities. There has been no change in the appearance of the mammogram from the prior studies. There is a mild amount of residual fibroglandular tissue which is fairly symmetric. There is no interval development of dominant mass, architectural distortion, or clustered microcalcification suggestive of malignancy. Assessment: BI-RADS/ACR category 1 mammogram. Negative Mammogram. Recommendation Routine screening mammogram in 1 year (for women over age 40). This mammogram was interpreted with the aid of an FDA-approved computer-aided dectection system. Electronically Signed By: Anders Marcos MD 09/06/20 [id number]
== END ==
LOC: M WHC 10:19
PROVIDERS: ATTEND Internal Medicine
DX: Z12.31 Encounter for screening mammogram for malignant neoplasm of breast (principal)

== ENCOUNTER → 2021-01-29 | Outpatient (CLI) | payer MEDICARE ==
--- NOTE | 2021-01-29 18:13 | REP ---
INDICATION: PAIN. COMPARISON: CT 12/24/2017. TECHNIQUE: Full cervical spine series, 7 views. FINDINGS: No compression fracture or malalignment. There is no subluxation with flexion or extension. There is no prevertebral soft tissue swelling. There is mild spurring of C4. There is minimal disc space narrowing at C5-6. There is diffuse narrowing and sclerosis as well as spurring at the posterior facet joints. Facet spurring appears to cause [id number] foraminal narrowing on the left at the C4-5 level. IMPRESSION: Degenerative changes as above. <Electronically signed by Anders Marcos > 01/29/21 [id number]
== END ==
LOC: M WUC 15:02
PROVIDERS: ATTEND Internal Medicine
DX: M50.321 Other cervical disc degeneration at C4-C5 level (principal)

== ENCOUNTER 2021-02-06 10:15 | Outpatient (RCR) | payer MEDICARE | END 2021-02-13 | LOC: M PT 10:15 | PROVIDERS: ATTEND Internal Medicine | DX: M54.2 Cervicalgia (principal) ==

== ENCOUNTER 2021-03-14 13:34 | Outpatient (RCR) | payer MEDICARE | END 2021-03-16 | LOC: M PT 13:34 | PROVIDERS: ATTEND Internal Medicine | DX: M54.2 Cervicalgia (principal) ==

== ENCOUNTER 2021-03-28 13:31 | Outpatient (RCR) | payer MEDICARE | END 2021-04-16 | LOC: M PT 13:31 | PROVIDERS: ATTEND Internal Medicine | DX: M54.2 Cervicalgia (principal) ==

== ENCOUNTER → 2021-09-06 | Outpatient (CLI) | payer MEDICARE ==
[~2021-09-06] MED LIST changes: +POTA-149 PO; -POTA10TA16 PO
== END ==
LOC: M WHC 10:33
PROVIDERS: ATTEND Internal Medicine
DX: Z12.31 Encounter for screening mammogram for malignant neoplasm of breast (principal); M85.89 Other specified disorders of bone density and structure, multiple sites; Z80.41 Family history of malignant neoplasm of ovary; Z80.0 Family history of malignant neoplasm of digestive organs

== ENCOUNTER 2022-07-15 12:25 | Outpatient (RCR) | payer MEDICARE ==
[~2022-07-15 12:25] MED LIST changes: +CITRACAL MAXIMU1 TAB PO; -CITRTAB16 PO
== END 2022-07-16 ==
LOC: M PT 12:25
PROVIDERS: ATTEND Internal Medicine
DX: M54.2 Cervicalgia (principal)

== ENCOUNTER 2022-08-05 12:39 | Outpatient (RCR) | payer MEDICARE | END 2022-08-16 | LOC: M PT 12:39 | PROVIDERS: ATTEND Internal Medicine | DX: M54.2 Cervicalgia (principal) ==

== ENCOUNTER → 2022-09-09 | Outpatient (CLI) | payer MEDICARE | LOC: M WHC 09:54 | PROVIDERS: ATTEND Internal Medicine | DX: Z12.31 Encounter for screening mammogram for malignant neoplasm of breast (principal) ==

== ENCOUNTER → 2022-10-01 | Outpatient (CLI) | payer MEDICARE ==
[~2022-10-01] MED LIST changes: +ALEN70TA82 PO; +AMLO2.5T3 PO; +CITRTAB18 PO; +META0.52 PO; +MIRT1TAB PO; +MULTTAB86 PO; +SPIR-10 PO
== END ==
LOC: M LABSMTC 09:32
PROVIDERS: ATTEND Anesthesiology
DX: Z01.812 Encounter for preprocedural laboratory examination (principal); Z11.52 Encounter for screening for COVID-19

== ENCOUNTER 2022-10-06 09:32 | Day surgery (SDC) | payer MEDICARE ==
[~2022-10-06] VITALS: Ht 160 cm; Wt 79.8 kg
[~2022-10-06 09:32] MED LIST changes: +LIDOCAINE 2% 100MG/5ML SDV (FOR ANES.) As Ordered ONE; +NS 1,000 ML IV ONE; +propofoL 200 MG/20 ML VIAL As Ordered ONE
[2022-10-06 11:41] VITALS: BP 138/76
== END 2022-10-06 11:49 | disposition home or self-care (01) ==
LOC: M OPP 09:32
PROVIDERS: ATTEND Internal Medicine Gastroenterology
DX: Z12.11 Encounter for screening for malignant neoplasm of colon (principal); D12.0 Benign neoplasm of cecum; K64.0 First degree hemorrhoids; I50.9 Heart failure, unspecified; I11.0 Hypertensive heart disease with heart failure; E78.00 Pure hypercholesterolemia, unspecified; Z79.02 Long term (current) use of antithrombotics/antiplatelets; Z79.52 Long term (current) use of systemic steroids; Z79.899 Other long term (current) drug therapy; Z88.2 Allergy status to sulfonamides; Z91.048 Other nonmedicinal substance allergy status; Z87.891 Personal history of nicotine dependence

== ENCOUNTER → 2022-10-07 | Outpatient (CLI) | payer MEDICARE ==
[~2022-10-07] MED LIST changes: -LIDOCAINE 2% 100MG/5ML SDV (FOR ANES.) As Ordered ONE; -NS 1,000 ML IV ONE; -propofoL 200 MG/20 ML VIAL As Ordered ONE
[2022-10-07 14:20] LABS: CALCIUM LEVEL 9.8 MG/DL (8.3-10.6); POTASSIUM SERUM 4.9 MMOL/L (3.5-5.1)
[2022-10-07 19:53] LABS: CREATININE FOR GFR 1.28 MG/DL (0.55-1.30); GLOMERULAR FILTRATION RATE 43.3 (>39)
== END ==
LOC: M PLALAB 10:29
PROVIDERS: ATTEND Physician Assistant
DX: I50.32 Chronic diastolic (congestive) heart failure (principal)

== ENCOUNTER → 2023-09-11 | Outpatient (CLI) | payer MEDICARE ==
[~2023-09-11] MED LIST changes: -ROPI0.5T3 PO; +ROPI0.5T33 PO
== END ==
LOC: M WHC 09:24
PROVIDERS: ATTEND Internal Medicine
DX: Z12.31 Encounter for screening mammogram for malignant neoplasm of breast (principal); R92.323 Mammographic fibroglandular density, bilateral breasts; M81.0 Age-related osteoporosis without current pathological fracture; M85.89 Other specified disorders of bone density and structure, multiple sites

== ENCOUNTER → 2024-09-13 | Outpatient (CLI) | payer MEDICARE | LOC: M WHC 08:54 | PROVIDERS: ATTEND Internal Medicine | DX: Z12.31 Encounter for screening mammogram for malignant neoplasm of breast (principal); R92.313 Mammographic fatty tissue density, bilateral breasts ==